=== PATIENT | female | born 1935 | race Caucasian/White ===

== ENCOUNTER 2016-11-01 17:55 | Inpatient (IN) | payer MEDICARE ==
--- NOTE | ~2016-11-01 | CN ---
Consultation Report [facility] [address] [place]. [address] NAME: AYANNA SANCHEZ : 34 STATUS : DIS IN PAT#: [id number] AGE: 81 ADM/REG DATE : 11/02/16 MR#: [id number] REPORT SERV DATE: 11/06/16 DICTATED BY: DATE: REPORT STATUS : Draft TRANSCRIBED BY: MODL DATE: 11/06/16 CONSULT DATE OF CONSULTATION: 11/06/2016 REASON FOR CONSULTATION: Diabetic management. REQUESTING PHYSICIAN: Dr. Salas Hernadez. IDENTIFYING DATA: PCP is Osmany Drummond, Cardiology is Dr. Salas Hernadez. HISTORY OF PRESENT ILLNESS: This is a pleasant 81-year-old white female, who had a CABG x3 on 11/04/2016, with MICHELE. This is postop day #2. The patient has a longstanding history of diabetes mellitus, type 2, hypertension, and episodic chest pain. We have been consulted to assist with her glucose management. The patient has been on Januvia, glyburide, and metformin at home. The patient states that she checks her blood sugars at night, but does not remember what the average is. The patient's current A1c is 7.3. The patient's history was obtained through careful interview with the patient, coupled with review in nurse CustEx and ChartCodeBabyx. PAST MEDICAL HISTORY: Significant for hypertension, dyslipidemia, diabetes mellitus type 2, GERD, osteoarthritis, hypothyroid, positive family history for early CAD. HOME MEDICATIONS: Amitriptyline 75 mg daily, gabapentin 100 mg daily, Osteo Bi-Flex twice daily, DiaBeta 5 mg daily, ibuprofen 200 mg daily as needed for pain, levothyroxine 75 mcg daily, Zestril 20 mg daily, Ativan 1 mg at bedtime as needed for sleep, Mobic 15 mg daily, Glucophage 1000 mg twice daily, omeprazole 40 mg daily, Zocor 40 mg daily, Januvia 100 mg daily, tramadol 50 mg twice daily as needed for pain, and PreserVision AREDS soft gel twice daily. ALLERGIES: THE PATIENT IS ALLERGIC TO PENICILLIN FOR WHICH SHE GETS A RASH. FAMILY HISTORY: Mother had an enlarged heart and at age 71. Brother with a heart attack in his 70s, his first heart attack was in his 60s. Father had an enlarged heart and at age 46 in a fire. SOCIAL HISTORY: The patient is with three children. 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 The patient lives with her sister. The patient denies alcohol, tobacco, or illicit drug use. The patient does not exercise routinely. PAST SURGICAL HISTORY: Right shoulder surgery, right hip surgery, left total knee arthroplasty, bilateral carpal tunnel surgery, removal of benign cyst from her breast, hysterectomy, and appendectomy. Consultation Report [address] [address] NAME: AYANNA SANCHEZ : 34 STATUS : DIS IN PAT#: [id number] AGE: 81 ADM/REG DATE : 11/02/16 MR#: [id number] REPORT SERV DATE: 11/06/16 DICTATED BY: DATE: REPORT STATUS : Draft TRANSCRIBED BY: MODSanaz DATE: 11/06/16 REVIEW OF SYSTEMS: A full 10-point review of systems was obtained. Pertinent positives mentioned in the HPI. Other systems are negative other than HPI. PHYSICAL EXAMINATION: VITAL SIGNS: Blood pressure 112/57, temperature is 97.8, respirations are 14, O2 saturation is 96% on 5 L high-flow nasal cannula, and heart rate is 80. GENERAL: Obese male, sitting in chair, in no acute distress. NEURO: Head is atraumatic and normocephalic. The patient is drowsy, but awakens to her name and then dozes back off again. At this time, the patient is a poor historian. NECK: Supple, trachea is midline. Neck veins are flat. No obvious thyromegaly or lymphadenopathy. HEENT: Sclerae are nonicteric, pupils are equal, round, reactive to light and accommodation, nares are patent. Mucous membranes are moist. Extraocular muscles within normal limits. Tongue is midline without deviation. CHEST: The patient has a midline sternotomy with a Prevena VAC, as well as chest tubes, and pacing wires. LUNGS: Clear to auscultation with shallow respiratory effort. Decreased in the bases. CARDIOVASCULAR: S1 and S2 with no obvious murmurs, rubs, or gallops. ABDOMEN: Soft and nontender with hypoactive bowel sounds. No palpable organomegaly. Last bowel movement was on 11/03/2016. EXTREMITIES: Feet are warm and dry with capillary refill less than 2 seconds. The patient has bilateral EVH sites with extensive ecchymosis around her knees and thighs. No significant edema, clubbing, or cyanosis. Pulses are present and equal bilaterally. SKIN: Skin is warm and dry with no unusual rashes or skin lesions. Normal color and turgor. PSYCH: The patient is drowsy, but awakens to voice. LABORATORY DATA: Sodium is 140, potassium is 4.8, chloride is 108, bicarb is 20.3, BUN is 26, creatinine 0.61, GFR is 98, glucose is 104, calcium is 8.4, magnesium 2.1. WBC 16.3, hemoglobin 9.0, hematocrit 26.9, and platelets 156. ASSESSMENT AND PLAN: 1. Diabetes mellitus type 2 with hyperglycemia. The patient has been on three oral medications for her diabetic management at home with a resulting A1c of 7.3. The patient has been on an insulin drip for the last two days in ICU and has received 104 units of insulin in the last 24 hours. At this time, the patient is not eating and it is unknown whether the patient has been eating at all. We will be stopping the insulin drip after administering Levemir 6 units and waiting one hour. The patient will be on sliding scale level 2 q.4 hours until the patient starts eating and then it will be changed to AC and at bedtime. We will be adjusting her insulin further tomorrow when hopefully the patient is alert enough to eat. Other diagnosis includes coronary artery disease, status post CABG x3, for which we are postop day #2. 2. Hypertension. 3. Hyperlipidemia. Consultation Report [address] [address] NAME: AYANNA SANCHEZ : 34 STATUS : DIS IN PAT#: [id number] AGE: 81 ADM/REG DATE : 11/02/16 MR#: [id number] REPORT SERV DATE: 11/06/16 DICTATED BY: DATE: REPORT STATUS : Draft TRANSCRIBED BY: MODL DATE: 11/06/16 4. Gastroesophageal reflux disease. 5. Osteoarthritis. 6. Hypothyroid. 7. Atypical chest pain. We would like to take the time to thank you for this consultation. We will continue to follow this patient with you until it is time for her to be discharged. Please let us know if we can be of any further assistance. SLC/MODL Maureen Isaacs NP / [id number] CC: Stephanie Alvarado M.D.
--- NOTE | ~2016-11-01 | CN ---
Consultation Report [facility] [address] [place]. [address] NAME: AYANNA SANCHEZ : 34 STATUS : DIS IN PAT#: [id number] AGE: 81 ADM/REG DATE : 11/02/16 MR#: [id number] REPORT SERV DATE: 11/03/16 DICTATED BY: NASEEM RODRIGUES DATE: 11/03/16 REPORT STATUS : Draft TRANSCRIBED BY: MODL DATE: 11/03/16 CONSULT NOTE DATE OF CONSULTATION: 11/03/2016 [facility] REASON FOR CONSULTATION: Multivessel coronary artery disease. HISTORY OF PRESENT ILLNESS: This is a pleasant 81-year-old female, who has a longstanding history of high blood pressure, hyperlipidemia, and type 2 diabetes mellitus. She presented to the emergency room on 11/01/2016 with severe onset of chest pain /10 with negative troponins and elevated blood pressure. She was being monitored in our chest pain observation unit overnight and developed a second and third degree AV block. She was alternating between second and third degree AV Wenckebach and 2:1 AV block. An overnight telemetry strip showed third-degree AV block with a junctional escape rhythm. Electrophysiology was consulted and the patient was evaluated by Dr. Briscoe who suspected that the patient needed to undergo pacemaker placement. She was actually taken for cardiac catheterization yesterday and found to have three-vessel coronary artery disease including a 50% stenosis to her left main, 75% proximal LAD, 75% first diagonal, 75% proximal left circ, and a 60% proximal RCA. Her ejection fraction is around 60%. There is a torturous innominate artery and aortic arch without mention of any valvular abnormality. CT surgery was consulted for evaluation of CAB versus medical therapy. The patient is currently recovering after her cardiac catheterization. She is lethargic and groggy from her sedation but is minimally arousable. She is not able to have a conversation regarding surgery at this time due to the fact that I am not sure if she can understand all the information. Her family is here with her at the bedside who said that the patient did not want surgery yesterday but they would still like to discuss what options she would have. Currently, the patient is free from any complaints. PAST MEDICAL HISTORY: Hypertension, hyperlipidemia, type 2 diabetes mellitus, gastroesophageal reflux disease, osteoarthritis, and hypothyroidism. PAST SURGICAL HISTORY: Appendectomy, hysterectomy, total left knee, right shoulder surgery, total right hip, bilateral carpal tunnel surgery, and she has a benign cyst removed from her left breast. SOCIAL HISTORY: She is , with 3 children. She is retired. She lives with her sister and is fairly independent in taking care of herself. She denies any history of alcohol abuse, use of illicit drugs, or tobacco. FAMILY HISTORY: She has a mother and father with cardiomyopathy and a brother who from an [place] in his 70s. Consultation Report [facility] [address]. [address] NAME: AYANNA SANCHEZ : 34 STATUS : DIS IN PAT#: [id number] AGE: 81 ADM/REG DATE : 11/02/16 MR#: [id number] REPORT SERV DATE: 11/03/16 DICTATED BY: NASEEM RODRIGUES DATE: 11/03/16 REPORT STATUS : Draft TRANSCRIBED BY: SHAHEEN DATE: 11/03/16 ALLERGIES: SHE IS ALLERGIC TO PENICILLIN IT CAUSES HER A RASH. HOME MEDICATIONS: 1. Neurontin 100 mg p.o. at bedtime. 2. Glucosamine D3 Boswellia tablet 1 tab p.o. daily. 3. Glyburide 5 mg p.o. daily. 4. Advil 200 mg p.o. as needed. 5. Levothyroxine 75 mcg p.o. daily. 6. Lisinopril 20 mg p.o. daily. 7. Ativan 1 mg p.o. at bedtime as needed. 8. Mobic 15 mg p.o. daily. 9. Glucophage 1000 mg p.o. twice a day. 10.Prilosec 40 mg p.o. daily. 11.Simvastatin 40 mg p.o. at bedtime. 12.Januvia 100 mg p.o. daily. 13.Tramadol 50 mg p.o. twice a day. 14.Vitamin C, zinc, copper, lutein tab 1 cap p.o. twice a day. REVIEW OF SYSTEMS: A 12-point review of systems was obtained and is negative other than HPI. PHYSICAL EXAMINATION: VITAL SIGNS: From today, temperature 99.2, heart rate 61, blood pressure 140/65, respiratory rate 16, and O2 saturation 96% on room air. GENERAL: Pleasant obese female, groggy from anesthesia but arousable. No acute distress. NEUROLOGIC: Alert and oriented x2. Pupils exhibit PERRLA. HEENT: Head normocephalic and atraumatic. Neck is supple. Sclerae clear. LUNGS: Clear to auscultation bilaterally with normal effort. CARDIAC: S1, S2 with no murmurs, rubs, or gallops. ABDOMEN: Soft, obese, and nontender with active bowel sounds. EXTREMITIES: Free of cyanosis, clubbing, or edema. LAB DATA: White blood cell count 9.0, hemoglobin 12.0, hematocrit 36.2, and platelets 221. Sodium 141, potassium 4.2, chloride 107, bicarb 24, BUN 15, creatinine 0.8, and glucose 207. ASSESSMENT AND PLAN: This is an 81-year-old female, who has a longstanding history of hypertension, type 2 diabetes mellitus, and hyperlipidemia, who presented to the emergency room on 11/01/2016 with unstable angina. She had negative troponins but developed a 2nd and 3rd degree AV block while being observed in the chest pain observation unit. She was evaluated by shift production associate who recommended pacemaker placement but she was also diagnosed with 3-vessel coronary artery disease as described above per cardiac catheterization yesterday. We were consulted for evaluation of CAB prior to proceeding with a pacemaker placement. Initially the patient told her family that she did not want bypass surgery but now she is too groggy to make that decision. Our first option is to do the CAB, Consultation Report [address] [place]. [address] NAME: AYANNA SANCHEZ : 34 STATUS : DIS IN PAT#: [id number] AGE: 81 ADM/REG DATE : 11/02/16 MR#: [id number] REPORT SERV DATE: 11/03/16 DICTATED BY: NASEEM RODRIGUES DATE: 11/03/16 REPORT STATUS : Draft TRANSCRIBED BY: SHAHEEN DATE: 11/03/16 then proceed with pacemaker placement later on down the line. The other option is to do the pacemaker placement now and allow Cardiology to maximize medical therapy with no plans for CAB. Calculated STS risk scores which included an STS risk stratification overall mortality of 2.2% and morbidity mortality of 14%. I discussed these findings with the family. We will discuss them later with the patient. We will return later after Dr. Noland has had a moment to review her cardiac catheterization. We will talk to the patient this afternoon when she is a little bit more awake so that she can make an informed decision regarding surgery. We would like to thank you for the consultation. We look forward to help in the care for Mrs. Ayanna Sanchez. DAWSON/SHAHEEN Naseem Rodrigues NP / [id number] CC: Stephanie Alvarado M.D.
--- NOTE | ~2016-11-01 | OP ---
Record Of Operation [facility] [address] [place]. [address] NAME: AYANNA SANCHEZ : 34 STATUS : DIS IN PAT#: [id number] AGE: 81 ADM/REG DATE : 11/02/16 MR#: [id number] REPORT SERV DATE: 12/08/16 DICTATED BY: BHANU JOHNS DATE: 12/08/16 REPORT STATUS : Draft TRANSCRIBED BY: MODL DATE: 12/08/16 DATE OF PROCEDURE: 11/04/2016 WASHER HAND: Dwayne Calix. ANESTHESIOLOGIST: Dr. Rafal Bradley. PREOPERATIVE DIAGNOSES: 1. Non-ST segment elevation myocardial infarction. 2. Unstable angina. 3. Left main coronary artery disease. 4. Three-vessel coronary artery disease. 5. Diabetes mellitus. 6. Hypertension. 7. Hyperlipidemia. 8. Morbid obesity. 9. Moderate MR. 10.Third-degree heart block. POSTOPERATIVE DIAGNOSES: 1. Non-ST segment elevation myocardial infarction. 2. Unstable angina. 3. Left main coronary artery disease. 4. Three-vessel coronary artery disease. 5. Diabetes mellitus. 6. Hypertension. 7. Hyperlipidemia. 8. Morbid obesity. 9. Moderate MR. 10.Third-degree heart block. OPERATION/PROCEDURE PERFORMED: 1. Median sternotomy. 2. Extracorporeal circulation. 3. Urgent coronary artery bypass grafting x3, left internal mammary artery, left anterior descending, reverse greater saphenous vein graft to obtuse marginal #1, reverse greater saphenous vein graft to distal RCA. 4. MICHELE. 5. Bilateral lower extremity EVH. 6. Prevena dressing placement. COMPLICATIONS: None. TUBES AND DRAINS: 24-Hebrew Collins to the left pleural space, 32-Hebrew mediastinal chest tube, atrial and ventricular wires were placed. Record Of Operation [facility] [address] [place]. [address] NAME: AYANNA SANCHEZ : 34 STATUS : DIS IN PAT#: [id number] AGE: 81 ADM/REG DATE : 11/02/16 MR#: [id number] REPORT SERV DATE: 12/08/16 DICTATED BY: BHANU JOHNS DATE: 12/08/16 REPORT STATUS : Draft TRANSCRIBED BY: MODL DATE: 12/08/16 POSTOPERATIVE CONDITION: Stable to CVICU. Cross-clamp time was 56 minutes. Total cardiopulmonary bypass time was 75 minutes. INTRAOPERATIVE FINDINGS: Vein from the left was unusable. Vein from the right was appropriate for conduit use. JAVIER was approximately 2 mm. On transesophageal echo, there was moderate MR preop. There was preserved EF post bypass and post CABG, there was mild-to- moderate MR. DETAILS OF CARDIOPULMONARY BYPASS GRAFTIN. Graft #1, left internal mammary artery, left anterior descending. 2. Reverse greater saphenous vein graft to obtuse marginal #1. 3. Reverse greater saphenous vein graft to distal RCA. Her excellent targets were excellent Doppler signals both pre and post protamine. INDICATIONS FOR PROCEDURE: Ms. Ayanna Sanchez is an 81-year-old female, admitted with an NSTEMI and third-degree heart block. Was found to have significant left main disease with three-vessel disease. Risks, benefits, and alternatives were discussed with the patient including, but not limited to bleeding, infection, stroke, , heart attack, and need for future operations. All questions were answered. STS risks were calculated and discussed with the patient. Risk of less mortality, risk of less than 5%. Overall morbidity and mortality less than 20% were discussed with the patient. All questions were answered. DETAILS OF PROCEDURE: The patient was brought to the operating room, placed supine on the operating room table. After satisfactory induction of general endotracheal anesthesia, she was prepped and draped in the usual sterile fashion. Working simultaneously, endoscopic vein harvest was performed from the right and left leg. The left was unusable. The right was appropriate. Median sternotomy was performed. Skin and subcutaneous tissues were divided. Clavipectoral fascia was divided. The sternum was divided in the midline. Hemostasis was obtained. Sternal retractor was placed. Thymic tissue was divided in the midline. Pericardium was opened in the midline along diaphragm, diaphragmatic surface. Rultract retractor was then placed and the internal mammary artery was harvested in a pedicle fashion from its takeoff from the subclavian vein to the bifurcation of the diaphragm. Systemic heparinization was achieved. After 3 minutes, the pedicle was clipped and divided at the bifurcation of the diaphragm. Rultract retractor was removed. Sternal retractor was placed. Pericardial well was created. Ascending aorta was cannulated at the base of the innominate artery. Dual stage venous cannula was placed through the pursestring in the right atrial appendage. Antegrade root vent cardioplegia tack was placed. The conduit was prepared for bypass. Internal mammary artery was brought down through a wide V in the pericardium. After documentation of an adequate ACT, the cardiopulmonary bypass was initiated. The targets were inspected. Targets were as mentioned in the findings. The cross-clamp was brought up. Heart was arrested with cold antegrade cardioplegia switching cold antegrade cardioplegia and intermittent aliquots for every 15 to 20 minutes throughout the remainder of the cross clamp. Distal venous anastomoses were then performed. The vein was brought up, reversed, spatulated, and a running continuous anastomosis was performed to one vein to the distal RCA and one vein to the obtuse marginal #1. The heart was filled. The veins were cut to length, spatulated. Proximal aortotomies were performed and enlarged with a 4.5 mm punch. The proximal anastomoses were then performed using 6-0 Prolene. Vein Record Of Operation [facility] [address] [facility] [address] [place]. [address] NAME: AYANNA SANCHEZ : 34 STATUS : DIS IN PAT#: [id number] AGE: 81 ADM/REG DATE : 11/02/16 MR#: [id number] REPORT SERV DATE: 12/08/16 DICTATED BY: BHANU JOHNS DATE: 12/08/16 REPORT STATUS : Draft TRANSCRIBED BY: SHAHEEN DATE: 12/08/16 markers were placed. The internal mammary artery was then brought down through a wide V in the pericardium and anastomosed to the anterior surface of the soft spot on the LAD. This was done using 8-0 Surgipro. All distal anastomoses were done using 8-0 Surgipro. After completion of the anastomosis, the bulldog was removed from the pedicle. There was excellent Doppler flow in the graft and in the artery, both pre and post the anastomosis. The vein grafts were de-aired. The cross-clamp was removed. Atrial and ventricular pacing wires were placed, and the patient was able to be weaned from cardiopulmonary bypass. Protamine was administered. The patient was decannulated. All cannulation sites were oversewn with 4-0 Prolene. The pericardium was loosely reapproximated over the anterior surface of the right ventricle and the aorta. #32-Hebrew chest tube was placed beneath the sternum. The sternum was reapproximated using stainless steel sternal wires, some of these were double wires. The clavipectoral fascia was then reapproximated using running #1 StrataFix. Subcutaneous tissues were reapproximated using running #1 StrataFix. The skin was closed using 2-0 Quill. A Prevena dressing was placed. The patient was transferred to the CVICU in critical-stable condition. WMC/MODL Bhanu Johns MD / [id number] CC: MD Osmany Simon M.D.
--- NOTE | ~2016-11-01 | HP ---
History And Physical [id number] [place]. [address] NAME: AYANNA SANCHEZ : 34 STATUS : DIS IN PAT#: [id number] AGE: 81 ADM/REG DATE : 11/02/16 MR#: [id number] REPORT SERV DATE: 11/02/16 DICTATED BY: RENEA VALENTINE DATE: 11/02/16 REPORT STATUS : Draft TRANSCRIBED BY: SHAHEEN DATE: 11/02/16 DATE OF ADMISSION: 11/01/2016 CHIEF COMPLAINT: Chest pain and hypertension. HISTORY OF PRESENT ILLNESS: A pleasant 81-year-old white female with no known history of CAD, presents to our facility complaining of episodic chest pain and blood pressure poorly managed. She states for the last three days, she has had episodic chest pain, generally on waking, described as a pressure. She rates the chest pain a 10/10 at its most intense. At the time of interview in the CPOU, she rates it a 5/10. She reports some associated shortness of breath, nausea, diaphoresis, dizziness, or belching. She reports chest pain at night when her blood pressure was elevated. She has tried aspirin without relief. There was no exertional component described. The patient denies any personal history of myocardial infarction, stroke, or PE. She does report a superficial lower extremity thrombus approximately 20 years ago, treated for six weeks with anticoagulants. The patient denies any recent fever or chills. Describes occasional palpitations. Consumes three eight-ounce cups of coffee per day. No syncopal episodes. Denies PND or orthopnea. PAST MEDICAL HISTORY: 1. Hypertension. 2. Dyslipidemia. 3. AODM. 4. GERD. 5. Osteoarthritis. 6. Hypothyroid, on replacement. 7. Positive family history for early CAD. PAST SURGICAL HISTORY: 1. Appendectomy. 2. Hysterectomy. 3. A cyst from breast (benign). 4. Bilateral carpal tunnel. 5. Left total knee. 6. Right total hip. 7. Right shoulder surgery. SOCIAL HISTORY: She is with three children. Previously employed in a [employer], now retired. She does not have an exercise routine. She resides with her sister. She denies tobacco, alcohol, or illicits. FAMILY HISTORY: Mother with an enlarged heart, at 71. Father with an enlarged heart at 46 in a fire. Brother with a heart attack in his 60s, in his 70s. REVIEW OF SYSTEMS: A fourteen-point review of systems performed, significant for HPI including home blood History And Physical [address] [place]. [address] NAME: AYANNA SANCHEZ : 34 STATUS : DIS IN PAT#: [id number] AGE: 81 ADM/REG DATE : 11/02/16 MR#: [id number] REPORT SERV DATE: 11/02/16 DICTATED BY: RENEA VALENTINE DATE: 11/02/16 REPORT STATUS : Draft TRANSCRIBED BY: MODL DATE: 11/02/16 sugars of 101 to 130. Home blood pressures of 115 systolic. Reports added salt to her diet and takes CLAUDINE inhibitor inconsistently at times. Otherwise, complete review of systems obtained and negative. ALLERGIES: PENICILLIN CAUSES A RASH. HOME MEDICINES: Gabapentin 100 mg nightly, Osteo Bi-Flex daily, glyburide 5 mg daily, Advil p.r.n., levothyroxine 75 mcg daily, lisinopril 20 mg daily, Ativan 1 mg nightly, Mobic 15 mg daily, metformin 1000 mg twice daily, Prilosec 40 mg daily, Zocor 40 mg nightly, Januvia 100 mg daily, tramadol 50 mg twice daily p.r.n., and PreserVision twice daily. PHYSICAL EXAMINATION: VITAL SIGNS: Blood pressure 206/79, pulse 51, respirations 16, temperature 97.9, O2 saturation 96% on room air. Height 5 feet 3 inches. Weight 208 pounds. BMI 37. GENERAL: Cooperative, in no apparent distress. HEENT: Pupils 2 mm, sclera nonicteric. Nares patent. Moist mucous membranes. No xanthelasma. NECK: Trachea midline, no thyromegaly. No JVD. No bruits. LYMPH: No cervical lymphadenopathy. No supraclavicular lymphadenopathy. RESPIRATORY: Unlabored respirations. Breath sounds clear bilaterally to posterior auscultation. No wheezes or rhonchi. CARDIOVASCULAR: Regular rate. No murmur, rub or gallop appreciated. EXTREMITIES: Without edema. Pulses 2+ bilaterally. ABDOMEN: Obese, normal bowel sounds auscultated throughout. No organomegaly. SKIN: Warm, dry extremities. No pallor, or cyanosis. PSYCHIATRIC: Appropriate affect. Alert, oriented x3. LABORATORY DATA: Troponin less than 0.02 x3, TSH 2.80, free T4 1.15. Potassium 3.9, BUN 15, creatinine 0.72, glucose 104, magnesium 1.6. WBC 10.3, hemoglobin 13.3, hematocrit 39.8, and platelet count 255,000. EKG, bradycardia with Mobitz 1 and Mobitz 2 noted. ASSESSMENT AND PLAN: 1. Chest pain with atypical features and the presence of elevated blood pressure and symptomatic bradycardia. The patient will be held n.p.o. for cardiac catheterization today. If no coronary artery disease identified, we will pursue Electrophysiology consult for symptomatic bradycardia. 2. Symptomatic bradycardia. Check a thyroid stimulating hormone, avoid blocking agents, Electrophysiology consult off following catheterization. Await findings. 3. Hypertension. Monitor blood pressure. Continue home medications. 4. Dyslipidemia. Continue statin. 5. Adult-onset diabetes mellitus. Hold metformin, level 1 sliding scale correction. LENIN/SHAHEEN History And Physical [address] [address] NAME: AYANNA SANCHEZ : 34 STATUS : DIS IN PAT#: [id number] AGE: 81 ADM/REG DATE : 11/02/16 MR#: [id number] REPORT SERV DATE: 11/02/16 DICTATED BY: RENEA VALENTINE DATE: 11/02/16 REPORT STATUS : Draft TRANSCRIBED BY: MODSanaz DATE: 11/02/16 Renea Valentine MSN, BUSINESS UNIT CONTROLLER-BC / [id number] CC: Renea Valentine, MSN, BUSINESS UNIT CONTROLLER-BC Osmany Drummond M.D.
--- NOTE | ~2016-11-01 | DS ---
Discharge Summary [facility] [address] [place]. [address] NAME: AYANNA SANCHEZ : 34 STATUS : DIS IN PAT#: [id number] AGE: 81 ADM/REG DATE : 11/02/16 MR#: [id number] REPORT SERV DATE: 11/21/16 DICTATED BY: SALAS CAMPO DATE: 11/18/16 REPORT STATUS : Draft TRANSCRIBED BY: SHAHEEN DATE: 11/18/16 Data Collection from hospitalization DISCHARGE DIAGNOSES: 1. Coronary artery disease, status post coronary artery bypass grafting. 2. Second-degree AV block. 3. Hypertension. 4. Hyperlipidemia. 5. Type 2 diabetes mellitus. 6. Gastroesophageal reflux disease. 7. Osteoarthritis. 8. Hypothyroidism. CONSULTATIONS: 1. Luiz Briscoe M.D. 2. Yovani Glass NP. 3. Maureen Isaacs NP. PROCEDURES: 1. Cardiac catheterization, 11/02/2016. 2. Dual-chamber pacemaker placement, 11/09/2016. 3. Carotid blood flow study, 11/03/2016. 4. Vein mapping of the bilateral lower extremities. 5. Coronary artery bypass x3 using left mammary artery and greater saphenous vein harvested endoscopically from the right and left side and transesophageal echocardiogram dated 11/04/2016. DISCHARGE MEDICATIONS: Elavil 75 mg at bedtime, aspirin 81 mg daily, Lipitor 40 mg at bedtime, Coreg 6.25 mg twice a day, Neurontin 100 mg at bedtime, DiaBeta 5 mg twice a day, levothyroxine 75 mcg daily, Prinivil 10 mg twice a day, Prilosec 40 mg daily, Januvia 100 mg daily, Glucophage 1000 mg twice a day, Osteo Bi-Flex one tablet twice a day, PreserVision one capsule twice a day, Ultram 50 mg twice a day as needed, Ativan 1 mg at bedtime as needed, and Zocor 40 mg at bedtime. CONDITION ON DISCHARGE: Stable. DISPOSITION: The patient was discharged to [email or web address]] on an 1800- calorie cardiac/diabetic diet with activities as instructed. HOSPITAL COURSE: This is an 81-year-old female, who has no known history of coronary artery disease, who presented to our facility complaining of episodic chest pain and blood pressure poorly managed. She said that for the last three days prior to admission she had episodic chest pain generally on awakening which she described as pressure. She said the pain was a 10/10 at its most intense. At the time of interview in the CPOU, she rated it a 5/10. She did report some associated shortness of breath, nausea, diaphoresis, dizziness, and belching. She reported chest pain at night when her blood pressure was elevated. She had tried aspirin without relief. There was no exertional component described. She denies any personal history of myocardial infarction, stroke, or pulmonary embolus. She does report a Discharge Summary [id number] [facility] [place]. [address] NAME: AYANNA SANCHEZ : 34 STATUS : DIS IN PAT#: [id number] AGE: 81 ADM/REG DATE : 11/02/16 MR#: [id number] REPORT SERV DATE: 11/21/16 DICTATED BY: SALAS CAMPO DATE: 11/18/16 REPORT STATUS : Draft TRANSCRIBED BY: SHAHEEN DATE: 11/18/16 superficial lower extremity thrombus approximately 20 years ago, she had been treated for six weeks with anticoagulants. She was admitted to the hospital at this time for further evaluation and treatment. Upon admission, EKG revealed bradycardia with Mobitz I and Mobitz II. White count was 10.3. Troponin was less than 0.02 x 3. It was felt that she would need to undergo a cardiac catheterization, she was held n.p.o. There is no coronary artery disease that was identified. We would pursue electrophysiology consult for symptomatic bradycardia. Thyroid stimulating hormone was going to be checked. We would avoid blocking agents. Home blood pressure medications would be continued. Metformin was held. Level 1 sliding scale insulin was started. She was taken to the cardiac ammunition assembly i laborer where she underwent the above-mentioned procedure by Dr. Francisco Javier Guadalupe, she tolerated this well, and there were no complications. She was seen in consultation by Dr. Luiz Briscoe regarding second and third degree AV block. His impression included high-grade AV block with a combination of second and third degree AV block. The patient has multi-vessel coronary artery disease with normal ejection fraction. The patient has fatigue and shortness of breath with exertion in the context of multivessel coronary disease and normal LV systolic function. It was felt that the patient would need to undergo implantation of a dual-chamber pacemaker, she agrees to proceed. The following day, a carotid blood flow study was performed as well as vein mapping of the bilateral lower extremities. The patient was now chest pain-free. The patient had been changed to Lipitor. Medical therapy continued. Statin was changed to atorvastatin. She was seen by Yovani Glass regarding multivessel coronary artery disease. Cardiac catheterization had revealed three-vessel coronary artery disease including 50% stenosis to the left main, 75% proximal LAD, 75% first diagonal, 75% proximal left circumflex, and 60% proximal RCA. Her ejection fraction was around 60%. There was a tortuous innominate artery and aortic arch without mention of any valvular abnormality. We have been asked to see the patient for evaluation of coronary artery bypass versus medical therapy. The first option was to perform coronary artery bypass and then proceed with pacemaker placement later or down the line. The other option was to perform pacemaker placement now and allow Cardiology to maximize medical therapy with no plans for coronary artery bypass. It was elected to proceed with coronary artery bypass On 11/04/2016, the patient was taken to the operating room where she underwent the above- mentioned procedure by Dr. Connell, she tolerated this well, and there were no complications. On postop day #1, she had been extubated, she was doing well. Nitroglycerin, calcium channel pippa, and CLAUDINE inhibitor were being provided. IV hydralazine would be given as needed. On 11/06/2016, she was up sitting in a chair. She was seen in consultation by Maureen Isaacs regarding diabetic management. The patient had been on Januvia, glyburide, and metformin at home. The patient says that she checks her blood sugar at night but does not remember what the average is. Her current hemoglobin A1c was 7.3. White count was 16.3. The patient had been on an insulin drip for the past two days in the ICU. The insulin drip was going to be stopped after administering Levemir. Sliding scale insulin level 2 would be started as well. Insulin would be further adjusted the following day when she was alert enough to eat. Her rhythm was in Mobitz II/Mobitz I. Her pacer was decreased to 60, CLAUDINE inhibitor was increased. Blood pressure was under acceptable control. Nitroglycerin was Discharge Summary [address] [place]. [address] NAME: AYANNA SANCHEZ : 34 STATUS : DIS IN PAT#: [id number] AGE: 81 ADM/REG DATE : 11/02/16 MR#: [id number] REPORT SERV DATE: 11/21/16 DICTATED BY: SALAS CAMPO DATE: 11/18/16 REPORT STATUS : Draft TRANSCRIBED BY: MODL DATE: 11/18/16 being weaned. AV block - second degree had improved. We would avoid calcium channel pippa or beta-pippa at this time. At the present time, no plans were being made to place a pacemaker. If there were changes in her rhythm situation, Electrophysiology may be consulted to arrange pacer placement. Medical therapy continued. Omeprazole, gabapentin, and levothyroxine were continued as well as aspirin and lisinopril. DiaBeta and sliding scale insulin were continued as well as metformin and Levemir. Her pain was controlled. We encouraged her to increase her oral intake. Her current Levemir dose and sliding scale insulin were continued. On 11/09/2016, she complained of being sore. She was eating okay. She had no chest pain or shortness of breath. She still had intermittent bradycardia -Mobitz II. She was being held n.p.o. It was felt that she may need to have a pacemaker placed. AV block persisted. The patient wanted to proceed. She was taken to the electrophysiology laboratory where she underwent the above-mentioned procedure by Dr. Luiz Briscoe. She tolerated this well, and there were no complications. The following day, she felt good. She had no new complaints. Blood sugars and blood pressure were under control. She had no new dysuria. She said she was sleeping well. She seemed to be in good spirits. Discharge planning continued. We encouraged her to ambulate. On 11/13/2016, she had no new complaints. She was afebrile, her vital signs were stable. Discharge instructions were given. Due to her improved and stable condition, she was discharged to [facility] with the above-stated instructions. Information collected by: Christina Amezcua I submit the above information as my discharge summary. DAYLIN/SHAHEEN Salas Campo M.D. / [id number] CC: Stephanie Alvarado M.D. Gregory Keith Bruce, M.D. Nathan S. Woody, [facility]
--- NOTE | ~2016-11-01 | CN ---
Consultation Report [facility] [address] [place]. [address] NAME: AYANNA SANCHEZ : 34 STATUS : DIS IN PAT#: [id number] AGE: 81 ADM/REG DATE : 11/02/16 MR#: [id number] REPORT SERV DATE: 11/03/16 DICTATED BY: LUIZ BRISCOE DATE: 11/02/16 REPORT STATUS : Draft TRANSCRIBED BY: MODL DATE: 11/02/16 ELECTROPHYSIOLOGY CONSULTATION DATE OF CONSULTATION: INDICATIONS: Second and third-degree AV block. HISTORY OF PRESENT ILLNESS: Ayanna Sanchez is an 81-year-old female who presented to the hospital on the . Three days prior to admission, she has had intermittent episodes of significant chest pain and she rates this as severe between 5/10 and 10/10. This is associated with elevation in her blood pressure. She was seen in the ER, troponin was found to be negative, admitted to the Chest Pain Unit. Overnight, she went on to develop second and third degree AV block. She is alternating between 2-3 AV Wenckebach and 2-1 AV block, and overnight telemetry strips with third-degree AV block and a junctional escaped rhythm. She is somewhat anxious and has no focal complaints at the present time. She has significant exertional fatigue, effort intolerance, and shortness of breath with exertion, but has no present symptoms while sitting at rest. Primary provider is Dr. Osmany Drummond. PAST MEDICAL HISTORY: Hypertension, hyperlipidemia, type 2 diabetes, reflux, osteoarthritis, and hypothyroidism. FAMILY HISTORY: Noted for premature CAD. REVIEW OF SYSTEMS: As per the HPI. Otherwise, all other review of systems negative. ALLERGIES: PENICILLIN CAUSES A RASH. MEDICATIONS: Listed in [facility] Medicine Form and reviewed. PHYSICAL EXAMINATION: VITAL SIGNS: Blood pressure currently 230/110, heart rate of 40, respiratory rate is 18. GENERAL: Appears stated age, no distress. EYES: Sclerae anicteric. Arcus senilis. MOUTH: Oral mucosa moist, lips acyanotic. NECK: Jugular venous pressure normal, no carotid bruits. LUNGS: Clear to auscultation bilaterally, normal inspiratory effort. CARDIAC: Irregular rhythm with bradycardia. ABDOMEN: Soft, nondistended, nontender. EXTREMITIES: No edema. SKIN: Warm and dry. NEURO/PSYCH: Alert and oriented, nonfocal, mood appropriate. IMAGING: Coronary arteriogram demonstrates multivessel coronary disease and normal LV Consultation Report [facility] [address] [place]. [address] NAME: AYANNA SANCHEZ : 34 STATUS : DIS IN PAT#: [id number] AGE: 81 ADM/REG DATE : 11/02/16 MR#: [id number] REPORT SERV DATE: 11/03/16 DICTATED BY: LUIZ BRISCOE DATE: 11/02/16 REPORT STATUS : Draft TRANSCRIBED BY: MODL DATE: 11/02/16 systolic function. ECG demonstrates Mobitz 1 AV block and 2-1 AV block. DATA: Sodium 143, potassium 3.9, creatinine 0.7, hemoglobin 13. Troponin negative x3. IMPRESSIONS: 1. High-grade AV block with combination of second and third degree AV block. 2. Multivessel CAD with normal EF. 3. Diabetes. 4. Hypertension. RECOMMENDATIONS: The patient has symptomatic high-grade AV block combination of second and third-degree AV block with fatigue and shortness of breath with exertion in the context of multivessel CAD and normal LV systolic function. We will plan to proceed with implantation of a dual chamber pacemaker. I have discussed this with the patient and multiple family members, addressed the rationale, logistics, and risks. Risks include, but not limited to bleeding, infection, vascular complications, myocardial infarction, stroke, failure to place lead, lead dislodgement, pneumothorax. Advised them may be one of my partners should do the procedure tomorrow or procedure may be performed on Monday. They voiced full understanding and agreement. Otherwise, we will control patient's blood pressure by increasing lisinopril adding Norvasc and as needed hydralazine both oral and IV. If she develops significant bradycardia overnight, we will begin aspirin on drip. JULIA/SHAHEEN Luiz Briscoe M.D. / [id number] CC: Renea Valentine, MSN, TRIMMER AND REINFORCER-BC Osmany Drummond M.D.
[2016-11-01 15:45] LABS: BASOPHILS 0.2 %; BASOPHILS ABSOLUTE 0.02 10/3/uL (0.0-0.16); ER CBC TAT 0 Hrs 03 Mins; HEMATOCRIT 39.8 % (36.0-48.0); HEMOGLOBIN 13.3 g/dL (12.0-16.0); IMMATURE GRANULOCYTES 0.2 %; IMMATURE GRANULOCYTES ABSOLUTE 0.02 10/3/uL (0.0-0.11); LYMPHOCYTES 21.5 %; LYMPHOCYTES ABSOLUTE 2.21 10/3/uL (0.67-4.30); MEAN CORPUS HGB CONC 33.4 g/dL (32.0-36.0); MEAN CORPUSCULAR HEMOGLOB 30.4 pg (26.0-34.0); MEAN CORPUSCULAR VOLUME 91.1 fL (80-100); MEAN PLATELET VOLUME 11.3 fL (9.2-13.0); MONOCYTES 6.5 %; MONOCYTES ABSOLUTE 0.67 10/3/uL (0.21-1.20); NEUTROPHILS 70.6 %; NEUTROPHILS ABSOLUTE 7.24 10/3/uL (2.02-8.40); PLATELET COUNT 255 10/3/uL (150-400); RBC DISTRIBUTION WIDTH 13.3 % (12.0-16.0); RED CELL COUNT 4.37 10/6/uL (4.0-5.6); WHITE BLOOD CELLS 10.3 10/3/uL (4.5-10.5)
[2016-11-01 15:46] LABS: MANUAL DIFF NO %
[2016-11-01 15:58] LABS: INTERNATIONAL NORMAL RATI 1.1 UNITS (-); PARTIAL THROMBO TIME 27.4 SEC (22.5-37.2); PROTIME (NOT ORD) 13.9 SEC (12.0-14.5)
[2016-11-01 16:03] LABS: BUN (BLOOD UREA NITROGEN) 15 MG/DL (6-23); CALCIUM, SERUM 8.9 MG/DL (8.5-10.4); CHEST PAIN PROFILE TAT 0 Hrs 21 Mins; CHLORIDE, SERUM 104 MMOL/L (96-112); CO2 (CARBON DIOXIDE) 30 MMOL/L (24-34); CREATININE 0.72 MG/DL (0.55-1.02); GFR AFRICAN AMERICAN 90 ML/MIN (>=60); GFR NON AFRICAN AMERICAN 78 ML/MIN (>=60); GLUCOSE, SERUM 104 MG/DL (60-99); POTASSIUM, SERUM 3.9 MMOL/L (3.5-5.3); SODIUM, SERUM 143 MMOL/L (135-148); TROPONIN I <0.02 NG/ML (<0.05)
[~2016-11-01 17:55] MED LIST: AMIT75 PO; CO Q-10100 MG PO; CRESTOR PO; DIABETA5 PO; ENDOCET1 TA2 PO; GLUCPH PO; LEVOTHYROXIN50 MCG PO; MOBIC7.5 PO; NORV5 PO; ULTRAM50 PO
[2016-11-01] MEDS ORDERED: OSTEO BI-FLEX1 EACH PO (18:49)
[2016-11-01] MEDS ORDERED: JANUVIA100 MG PO (18:50)
[2016-11-01] MEDS ORDERED: PRESERVISION A1 EAC1 PO (18:50)
[2016-11-01] MEDS ORDERED: GLUCOPHAGE1000 MG PO (18:50)
[2016-11-01] MEDS ORDERED: PRILOSEC40 MG PO (18:50)
[2016-11-01] MEDS ORDERED: MOBIC15 MG PO (18:50)
[2016-11-01] MEDS ORDERED: ZESTRIL20 MG PO (18:51)
[2016-11-01] MEDS ORDERED: ULTRAM50 PO (18:51)
[2016-11-01] MEDS ORDERED: ATV1 PO (18:52)
[2016-11-01] MEDS ORDERED: ZOCOR40 PO (18:57)
[2016-11-01] MEDS ORDERED: NEUR100 PO (18:57)
[2016-11-01] MEDS ORDERED: DIABETA5 PO (18:58)
[2016-11-01] MEDS ORDERED: AMIT75 PO (18:58)
[2016-11-01] MEDS ORDERED: ADVIL PO (18:58)
[2016-11-01] MEDS ORDERED: LEVOTHYROXIN75 MCG PO (18:58)
[2016-11-02 03:41] LABS: TROPONIN I <0.02 NG/ML (<0.05)
[2016-11-02 11:53] LABS: FREE T4 1.15 NG/DL (0.76-1.46)
[2016-11-02 13:20] LABS: FREE T4 1.1 NG/DL (0.76-1.46); ULTRASENSITIVE TSH 3.08 MCIU/ML (0.358-3.740)
[2016-11-02 14:47] LABS: BASOPHILS 0.1 %; BASOPHILS ABSOLUTE 0.01 10/3/uL (0.0-0.16); EOSINOPHILS 0.5 %; EOSINOPHILS ABSOLUTE 0.04 10/3/uL (0.0-0.53); HEMOGLOBIN 12.1 g/dL (12.0-16.0); IMMATURE GRANULOCYTES 0.1 %; IMMATURE GRANULOCYTES ABSOLUTE 0.01 10/3/uL (0.0-0.11); LYMPHOCYTES 23.6 %; LYMPHOCYTES ABSOLUTE 1.74 10/3/uL (0.67-4.30); MEAN CORPUS HGB CONC 34.1 g/dL (32.0-36.0); MEAN CORPUSCULAR HEMOGLOB 30.9 pg (26.0-34.0); MEAN CORPUSCULAR VOLUME 90.6 fL (80-100); MEAN PLATELET VOLUME 10.8 fL (9.2-13.0); MONOCYTES 6.8 %; NEUTROPHILS 68.9 %; NEUTROPHILS ABSOLUTE 5.07 10/3/uL (2.02-8.40); PLATELET COUNT 228 10/3/uL (150-400); RBC DISTRIBUTION WIDTH 13.5 % (12.0-16.0); RED CELL COUNT 3.92 10/6/uL (4.0-5.6); WHITE BLOOD CELLS 7.4 10/3/uL (4.5-10.5)
[2016-11-02 14:48] LABS: HEMATOCRIT 35.5 % (36.0-48.0); MANUAL DIFF NO %
[2016-11-02 15:01] LABS: BUN (BLOOD UREA NITROGEN) 14 MG/DL (6-23); CALCIUM, SERUM 8.7 MG/DL (8.5-10.4); CHLORIDE, SERUM 107 MMOL/L (96-112); CO2 (CARBON DIOXIDE) 28 MMOL/L (24-34); CREATININE 0.61 MG/DL (0.55-1.02); GFR AFRICAN AMERICAN 98 ML/MIN (>=60); GFR NON AFRICAN AMERICAN 84 ML/MIN (>=60); POTASSIUM, SERUM 4.1 MMOL/L (3.5-5.3); SODIUM, SERUM 143 MMOL/L (135-148)
[2016-11-02 15:07] LABS: GLUCOSE, SERUM 139 MG/DL (60-99)
[2016-11-03 05:41] LABS: BASOPHILS 0.1 %; BASOPHILS ABSOLUTE 0.01 10/3/uL (0.0-0.16); EOSINOPHILS 0.2 %; EOSINOPHILS ABSOLUTE 0.02 10/3/uL (0.0-0.53); HEMATOCRIT 36.2 % (36.0-48.0); IMMATURE GRANULOCYTES 0.2 %; IMMATURE GRANULOCYTES ABSOLUTE 0.02 10/3/uL (0.0-0.11); LYMPHOCYTES 15.5 %; MEAN CORPUS HGB CONC 33.1 g/dL (32.0-36.0); MEAN CORPUSCULAR HEMOGLOB 31.2 pg (26.0-34.0); MONOCYTES 6.2 %; MONOCYTES ABSOLUTE 0.56 10/3/uL (0.21-1.20); NEUTROPHILS 77.8 %; NEUTROPHILS ABSOLUTE 7.01 10/3/uL (2.02-8.40); PLATELET COUNT 221 10/3/uL (150-400); RBC DISTRIBUTION WIDTH 13.6 % (12.0-16.0); RED CELL COUNT 3.85 10/6/uL (4.0-5.6)
[2016-11-03 05:47] LABS: MANUAL DIFF NO %
[2016-11-03 05:52] LABS: BUN (BLOOD UREA NITROGEN) 15 MG/DL (6-23); CALCIUM, SERUM 8.2 MG/DL (8.5-10.4); CHLORIDE, SERUM 107 MMOL/L (96-112); CO2 (CARBON DIOXIDE) 24 MMOL/L (24-34); CREATININE 0.77 MG/DL (0.55-1.02); GFR AFRICAN AMERICAN 83 ML/MIN (>=60); GFR NON AFRICAN AMERICAN 72 ML/MIN (>=60); POTASSIUM, SERUM 4.2 MMOL/L (3.5-5.3); SODIUM, SERUM 141 MMOL/L (135-148)
[2016-11-03 05:53] LABS: GLUCOSE, SERUM 207 MG/DL (60-99)
[2016-11-03 19:01] LABS: ASCORBIC ACID (UR NOT ORDER) NEG (NEG); BILIRUBIN, URINE NEGATIVE (NEG); KETONE, URINE NEGATIVE (NEG); LEUKOCYTE ESTERASE(NOT OR SMALL (NEG); WBC (NOT ORDERED) (RFLEX) 5 (0-5)
[2016-11-04 04:10] LABS: BASOPHILS 0.1 %; BASOPHILS ABSOLUTE 0.01 10/3/uL (0.0-0.16); EOSINOPHILS 1.2 %; HEMATOCRIT 35.6 % (36.0-48.0); HEMOGLOBIN 11.6 g/dL (12.0-16.0); IMMATURE GRANULOCYTES 0.1 %; IMMATURE GRANULOCYTES ABSOLUTE 0.01 10/3/uL (0.0-0.11); LYMPHOCYTES 21.8 %; LYMPHOCYTES ABSOLUTE 1.86 10/3/uL (0.67-4.30); MEAN CORPUS HGB CONC 32.6 g/dL (32.0-36.0); MEAN CORPUSCULAR HEMOGLOB 30.1 pg (26.0-34.0); MEAN CORPUSCULAR VOLUME 92.2 fL (80-100); MEAN PLATELET VOLUME 10.8 fL (9.2-13.0); MONOCYTES 8.3 %; MONOCYTES ABSOLUTE 0.71 10/3/uL (0.21-1.20); NEUTROPHILS 68.5 %; NEUTROPHILS ABSOLUTE 5.85 10/3/uL (2.02-8.40); PLATELET COUNT 186 10/3/uL (150-400); RBC DISTRIBUTION WIDTH 13.4 % (12.0-16.0); RED CELL COUNT 3.86 10/6/uL (4.0-5.6); WHITE BLOOD CELLS 8.5 10/3/uL (4.5-10.5)
[2016-11-04 04:11] LABS: MANUAL DIFF NO %
[2016-11-04 04:15] LABS: INTERNATIONAL NORMAL RATI 1.2 UNITS (-); PROTIME (NOT ORD) 15.3 SEC (12.0-14.5)
[2016-11-04 04:30] LABS: % IRON SAT 20 % (20-50); A/G RATIO 0.9 (0.7-1.9); ALBUMIN 3.1 G/DL (3.5-5.0); ALKALINE PHOSPHATASE 45 U/L (45-117); BUN (BLOOD UREA NITROGEN) 15 MG/DL (6-23); CALCIUM, SERUM 8.4 MG/DL (8.5-10.4); CHLORIDE, SERUM 105 MMOL/L (96-112); CO2 (CARBON DIOXIDE) 26 MMOL/L (24-34); CREATININE 0.78 MG/DL (0.55-1.02); GFR AFRICAN AMERICAN 82 ML/MIN (>=60); GFR NON AFRICAN AMERICAN 71 ML/MIN (>=60); GLOBULIN 3.4 G/DL (2.5-4.1); GLUCOSE, SERUM 168 MG/DL (60-99); IRON BINDING CAPACITY 278 MCG/DL (225-410); IRON, SERUM 55 MCG/DL (35-150); POTASSIUM, SERUM 4.3 MMOL/L (3.5-5.3); SGOT(AST) 9 U/L (5-40); SGPT(ALT) 15 U/L (5-65); SODIUM, SERUM 141 MMOL/L (135-148); TOTAL BILIRUBIN 0.8 MG/DL (0-1.2); TOTAL PROTEIN 6.5 G/DL (6.0-8.5)
[2016-11-04 18:01] LABS: BE (BASE EXCESS) -3.8 MEQ/L (0 +/- 2.5); CARBOXYHEMOGLOBIN 0.3 % (0-3); HCO3 (ACTUAL BICARBONATE) 22.3 MEQ/L (23-27); HEMOBLOGIN CONTENT 11.8 G/DL (12-16); INSTRUMENT SERIAL # 11843; METHEMOGLOBIN 0.6 % (0-3); MODE SIMV; O2 CONTENT 16.7 VOL% (18-24); OPERATOR ID 19104; PCO2 (CO2 TENSION) 45 MMHG (35-45); PO2 (O2 TENSION) 214 MMHG (79-93); SAMPLE Arterial; TIDAL VOLUME 500 ML; pH 7.32 (7.37-7.43)
[2016-11-04 18:37] LABS: HEMATOCRIT 32.3 % (36.0-48.0); HEMOGLOBIN 10.6 g/dL (12.0-16.0); PLATELET COUNT 134 10/3/uL (150-400)
[2016-11-04 18:48] LABS: INTERNATIONAL NORMAL RATI 1.6 UNITS (-); PARTIAL THROMBO TIME 31.8 SEC (22.5-37.2); PROTIME (NOT ORD) 18.6 SEC (12.0-14.5)
[2016-11-04 18:49] LABS: BUN (BLOOD UREA NITROGEN) 14 MG/DL (6-23); CALCIUM, SERUM 8.8 MG/DL (8.5-10.4); CHLORIDE, SERUM 111 MMOL/L (96-112); CO2 (CARBON DIOXIDE) 23 MMOL/L (24-34); CREATININE 0.94 MG/DL (0.55-1.02); GFR AFRICAN AMERICAN 65 ML/MIN (>=60); GFR NON AFRICAN AMERICAN 56 ML/MIN (>=60); SODIUM, SERUM 143 MMOL/L (135-148)
[2016-11-04 18:50] LABS: GLUCOSE, SERUM 103 MG/DL (60-99)
[2016-11-04 19:09] LABS: FIBRINOGEN 308 MG/DL (230-462)
[2016-11-05 00:09] LABS: BE (BASE EXCESS) -4.6 MEQ/L (0 +/- 2.5); CARBOXYHEMOGLOBIN 0.1 % (0-3); DEVICE NC; HCO3 (ACTUAL BICARBONATE) 20.3 MEQ/L (23-27); HEMOBLOGIN CONTENT 11.6 G/DL (12-16); INSTRUMENT SERIAL # 11843; METHEMOGLOBIN 0.4 % (0-3); O2 CONTENT 15.2 VOL% (18-24); OPERATOR ID 32193; PCO2 (CO2 TENSION) 37 MMHG (35-45); PO2 (O2 TENSION) 74 MMHG (79-93); SAMPLE Arterial; pH 7.36 (7.37-7.43)
[2016-11-05 00:43] LABS: HEMATOCRIT 32.2 % (36.0-48.0); HEMOGLOBIN 10.6 g/dL (12.0-16.0)
[2016-11-05 00:49] LABS: POTASSIUM, SERUM 4.7 MMOL/L (3.5-5.3)
[2016-11-05 04:16] LABS: BASOPHILS 0 %; EOSINOPHILS 0 %; HEMATOCRIT 30.8 % (36.0-48.0); HEMOGLOBIN 10.1 g/dL (12.0-16.0); IMMATURE GRANULOCYTES 0.1 %; IMMATURE GRANULOCYTES ABSOLUTE 0.02 10/3/uL (0.0-0.11); INTERNATIONAL NORMAL RATI 1.3 UNITS (-); LYMPHOCYTES 4.6 %; LYMPHOCYTES ABSOLUTE 0.63 10/3/uL (0.67-4.30); MANUAL DIFF NO %; MEAN CORPUS HGB CONC 32.8 g/dL (32.0-36.0); MEAN CORPUSCULAR HEMOGLOB 29.7 pg (26.0-34.0); MEAN CORPUSCULAR VOLUME 90.6 fL (80-100); MEAN PLATELET VOLUME 11.1 fL (9.2-13.0); MONOCYTES 4.1 %; MONOCYTES ABSOLUTE 0.57 10/3/uL (0.21-1.20); NEUTROPHILS 91.2 %; NEUTROPHILS ABSOLUTE 12.61 10/3/uL (2.02-8.40); PLATELET COUNT 145 10/3/uL (150-400); PROTIME (NOT ORD) 16.3 SEC (12.0-14.5); RBC DISTRIBUTION WIDTH 13.2 % (12.0-16.0); WHITE BLOOD CELLS 13.8 10/3/uL (4.5-10.5)
[2016-11-05 04:17] LABS: BUN (BLOOD UREA NITROGEN) 17 MG/DL (6-23); CALCIUM, SERUM 8.2 MG/DL (8.5-10.4); CHLORIDE, SERUM 113 MMOL/L (96-112); CO2 (CARBON DIOXIDE) 23 MMOL/L (24-34); CREATININE 0.65 MG/DL (0.55-1.02); GFR AFRICAN AMERICAN 96 ML/MIN (>=60); GFR NON AFRICAN AMERICAN 83 ML/MIN (>=60); GLUCOSE, SERUM 109 MG/DL (60-99); POTASSIUM, SERUM 4.6 MMOL/L (3.5-5.3); SODIUM, SERUM 144 MMOL/L (135-148)
[2016-11-05 16:18] LABS: HEMATOCRIT 29.1 % (36.0-48.0)
[2016-11-05 16:28] LABS: POTASSIUM, SERUM 4.2 MMOL/L (3.5-5.3)
[2016-11-06 02:49] LABS: BASOPHILS 0 %; EOSINOPHILS 0 %; IMMATURE GRANULOCYTES 0.1 %; IMMATURE GRANULOCYTES ABSOLUTE 0.01 10/3/uL (0.0-0.11)
[2016-11-06 02:50] LABS: MANUAL DIFF NO %
[2016-11-06 04:10] LABS: WHITE BLOOD CELLS 16.3 10/3/uL (4.5-10.5)
[2016-11-06 04:11] LABS: RED CELL COUNT 2.95 10/6/uL (4.0-5.6)
[2016-11-06 04:12] LABS: HEMATOCRIT 26.9 % (36.0-48.0); MEAN CORPUS HGB CONC 33.5 g/dL (32.0-36.0); MEAN CORPUSCULAR HEMOGLOB 30.5 pg (26.0-34.0); MEAN CORPUSCULAR VOLUME 91.2 fL (80-100); PLATELET COUNT 156 10/3/uL (150-400); RBC DISTRIBUTION WIDTH 13.6 % (12.0-16.0)
[2016-11-06 04:13] LABS: LYMPHOCYTES 8.5 %; MONOCYTES 8.1 %; NEUTROPHILS ABSOLUTE 13.51 10/3/uL (2.02-8.40)
[2016-11-06 04:14] LABS: LYMPHOCYTES ABSOLUTE 1.39 10/3/uL (0.67-4.30); MONOCYTES ABSOLUTE 1.31 10/3/uL (0.21-1.20)
[2016-11-06 05:59] LABS: BUN (BLOOD UREA NITROGEN) 26 MG/DL (6-23); CALCIUM, SERUM 8.4 MG/DL (8.5-10.4); CHLORIDE, SERUM 108 MMOL/L (96-112); CO2 (CARBON DIOXIDE) 22 MMOL/L (24-34); CREATININE 0.61 MG/DL (0.55-1.02); GFR AFRICAN AMERICAN 98 ML/MIN (>=60); GFR NON AFRICAN AMERICAN 84 ML/MIN (>=60); GLUCOSE, SERUM 104 MG/DL (60-99); POTASSIUM, SERUM 4.8 MMOL/L (3.5-5.3); SODIUM, SERUM 140 MMOL/L (135-148)
[2016-11-07 04:45] LABS: BASOPHILS 0 %; EOSINOPHILS 0.5 %; EOSINOPHILS ABSOLUTE 0.06 10/3/uL (0.0-0.53); HEMATOCRIT 27.4 % (36.0-48.0); HEMOGLOBIN 9.4 g/dL (12.0-16.0); IMMATURE GRANULOCYTES 0.2 %; IMMATURE GRANULOCYTES ABSOLUTE 0.03 10/3/uL (0.0-0.11); LYMPHOCYTES 11.6 %; LYMPHOCYTES ABSOLUTE 1.44 10/3/uL (0.67-4.30); MEAN CORPUS HGB CONC 34.3 g/dL (32.0-36.0); MEAN CORPUSCULAR HEMOGLOB 31.6 pg (26.0-34.0); MEAN CORPUSCULAR VOLUME 92.3 fL (80-100); MONOCYTES 9.6 %; NEUTROPHILS 78.1 %; NEUTROPHILS ABSOLUTE 9.72 10/3/uL (2.02-8.40); PLATELET COUNT 152 10/3/uL (150-400); RBC DISTRIBUTION WIDTH 13.6 % (12.0-16.0); RED CELL COUNT 2.97 10/6/uL (4.0-5.6); WHITE BLOOD CELLS 12.5 10/3/uL (4.5-10.5)
[2016-11-07 04:49] LABS: MANUAL DIFF NO %
[2016-11-07 04:58] LABS: BUN (BLOOD UREA NITROGEN) 23 MG/DL (6-23); CALCIUM, SERUM 8.3 MG/DL (8.5-10.4); CHLORIDE, SERUM 101 MMOL/L (96-112); CO2 (CARBON DIOXIDE) 24 MMOL/L (24-34); CREATININE 0.61 MG/DL (0.55-1.02); GFR AFRICAN AMERICAN 98 ML/MIN (>=60); GFR NON AFRICAN AMERICAN 84 ML/MIN (>=60); POTASSIUM, SERUM 4.8 MMOL/L (3.5-5.3)
[2016-11-07 05:01] LABS: GLUCOSE, SERUM 184 MG/DL (60-99); SODIUM, SERUM 133 MMOL/L (135-148)
[2016-11-07 06:37] LABS: PROCALCITONIN <0.05 ng/mL (<0.5)
[2016-11-08 04:00] LABS: BASOPHILS 0.1 %; BASOPHILS ABSOLUTE 0.01 10/3/uL (0.0-0.16); EOSINOPHILS 1.3 %; EOSINOPHILS ABSOLUTE 0.14 10/3/uL (0.0-0.53); HEMATOCRIT 28.5 % (36.0-48.0); HEMOGLOBIN 9.6 g/dL (12.0-16.0); IMMATURE GRANULOCYTES 0.2 %; IMMATURE GRANULOCYTES ABSOLUTE 0.02 10/3/uL (0.0-0.11); LYMPHOCYTES 14.4 %; LYMPHOCYTES ABSOLUTE 1.51 10/3/uL (0.67-4.30); MEAN CORPUS HGB CONC 33.7 g/dL (32.0-36.0); MEAN CORPUSCULAR VOLUME 91.9 fL (80-100); MEAN PLATELET VOLUME 10.7 fL (9.2-13.0); MONOCYTES 8.3 %; MONOCYTES ABSOLUTE 0.87 10/3/uL (0.21-1.20); NEUTROPHILS 75.7 %; NEUTROPHILS ABSOLUTE 7.92 10/3/uL (2.02-8.40); PLATELET COUNT 180 10/3/uL (150-400); RBC DISTRIBUTION WIDTH 13.6 % (12.0-16.0); WHITE BLOOD CELLS 10.5 10/3/uL (4.5-10.5)
[2016-11-08 04:05] LABS: MANUAL DIFF NO %
[2016-11-08 04:18] LABS: BUN (BLOOD UREA NITROGEN) 26 MG/DL (6-23); CALCIUM, SERUM 7.8 MG/DL (8.5-10.4); CHLORIDE, SERUM 101 MMOL/L (96-112); CO2 (CARBON DIOXIDE) 25 MMOL/L (24-34); CREATININE 0.57 MG/DL (0.55-1.02); GFR AFRICAN AMERICAN 100 ML/MIN (>=60); GFR NON AFRICAN AMERICAN 86 ML/MIN (>=60); GLUCOSE, SERUM 165 MG/DL (60-99); SODIUM, SERUM 134 MMOL/L (135-148)
[2016-11-09 03:47] LABS: BASOPHILS 0.1 %; BASOPHILS ABSOLUTE 0.01 10/3/uL (0.0-0.16); EOSINOPHILS 1.7 %; EOSINOPHILS ABSOLUTE 0.15 10/3/uL (0.0-0.53); HEMATOCRIT 26.8 % (36.0-48.0); HEMOGLOBIN 9.1 g/dL (12.0-16.0); IMMATURE GRANULOCYTES 0.2 %; IMMATURE GRANULOCYTES ABSOLUTE 0.02 10/3/uL (0.0-0.11); LYMPHOCYTES 15.2 %; LYMPHOCYTES ABSOLUTE 1.36 10/3/uL (0.67-4.30); MANUAL DIFF NO %; MEAN CORPUSCULAR HEMOGLOB 31.3 pg (26.0-34.0); MEAN CORPUSCULAR VOLUME 92.1 fL (80-100); MEAN PLATELET VOLUME 10.3 fL (9.2-13.0); MONOCYTES 10.4 %; MONOCYTES ABSOLUTE 0.93 10/3/uL (0.21-1.20); NEUTROPHILS 72.4 %; NEUTROPHILS ABSOLUTE 6.48 10/3/uL (2.02-8.40); PLATELET COUNT 200 10/3/uL (150-400); RBC DISTRIBUTION WIDTH 13.5 % (12.0-16.0); RED CELL COUNT 2.91 10/6/uL (4.0-5.6)
[2016-11-09 04:07] LABS: CALCIUM, SERUM 7.9 MG/DL (8.5-10.4); CHLORIDE, SERUM 104 MMOL/L (96-112); CO2 (CARBON DIOXIDE) 28 MMOL/L (24-34); CREATININE 0.44 MG/DL (0.55-1.02); GFR AFRICAN AMERICAN 109 ML/MIN (>=60); GFR NON AFRICAN AMERICAN 94 ML/MIN (>=60); POTASSIUM, SERUM 4.2 MMOL/L (3.5-5.3); SODIUM, SERUM 140 MMOL/L (135-148)
[2016-11-09 04:08] LABS: BUN (BLOOD UREA NITROGEN) 18 MG/DL (6-23); GLUCOSE, SERUM 120 MG/DL (60-99)
[2016-11-10 04:05] LABS: BASOPHILS 0.1 %; BASOPHILS ABSOLUTE 0.01 10/3/uL (0.0-0.16); EOSINOPHILS 2.1 %; EOSINOPHILS ABSOLUTE 0.19 10/3/uL (0.0-0.53); HEMATOCRIT 28.5 % (36.0-48.0); HEMOGLOBIN 9.4 g/dL (12.0-16.0); IMMATURE GRANULOCYTES 0.2 %; IMMATURE GRANULOCYTES ABSOLUTE 0.02 10/3/uL (0.0-0.11); LYMPHOCYTES 14.8 %; LYMPHOCYTES ABSOLUTE 1.34 10/3/uL (0.67-4.30); MEAN CORPUSCULAR VOLUME 91.1 fL (80-100); MEAN PLATELET VOLUME 9.7 fL (9.2-13.0); NEUTROPHILS 71.8 %; NEUTROPHILS ABSOLUTE 6.49 10/3/uL (2.02-8.40); PLATELET COUNT 245 10/3/uL (150-400); RBC DISTRIBUTION WIDTH 13.6 % (12.0-16.0); RED CELL COUNT 3.13 10/6/uL (4.0-5.6); WHITE BLOOD CELLS 9.1 10/3/uL (4.5-10.5)
[2016-11-10 04:10] LABS: MANUAL DIFF NO %
[2016-11-10 04:21] LABS: BUN (BLOOD UREA NITROGEN) 13 MG/DL (6-23); CALCIUM, SERUM 8.3 MG/DL (8.5-10.4); CHLORIDE, SERUM 102 MMOL/L (96-112); CO2 (CARBON DIOXIDE) 28 MMOL/L (24-34); CREATININE 0.56 MG/DL (0.55-1.02); GFR AFRICAN AMERICAN 101 ML/MIN (>=60); GFR NON AFRICAN AMERICAN 87 ML/MIN (>=60); GLUCOSE, SERUM 126 MG/DL (60-99); POTASSIUM, SERUM 4.1 MMOL/L (3.5-5.3); SODIUM, SERUM 138 MMOL/L (135-148)
[2016-11-11 05:02] LABS: BASOPHILS 0.2 %; BASOPHILS ABSOLUTE 0.02 10/3/uL (0.0-0.16); EOSINOPHILS ABSOLUTE 0.29 10/3/uL (0.0-0.53); HEMATOCRIT 28.6 % (36.0-48.0); HEMOGLOBIN 9.5 g/dL (12.0-16.0); IMMATURE GRANULOCYTES 0.3 %; IMMATURE GRANULOCYTES ABSOLUTE 0.03 10/3/uL (0.0-0.11); LYMPHOCYTES 14.5 %; LYMPHOCYTES ABSOLUTE 1.43 10/3/uL (0.67-4.30); MEAN CORPUS HGB CONC 33.2 g/dL (32.0-36.0); MEAN CORPUSCULAR HEMOGLOB 30.9 pg (26.0-34.0); MEAN CORPUSCULAR VOLUME 93.2 fL (80-100); MEAN PLATELET VOLUME 9.5 fL (9.2-13.0); MONOCYTES 11.1 %; MONOCYTES ABSOLUTE 1.09 10/3/uL (0.21-1.20); NEUTROPHILS 70.9 %; NEUTROPHILS ABSOLUTE 6.97 10/3/uL (2.02-8.40); PLATELET COUNT 257 10/3/uL (150-400); RBC DISTRIBUTION WIDTH 13.4 % (12.0-16.0); RED CELL COUNT 3.07 10/6/uL (4.0-5.6); WHITE BLOOD CELLS 9.8 10/3/uL (4.5-10.5)
[2016-11-11 05:03] LABS: MANUAL DIFF NO %
[2016-11-11 05:08] LABS: CALCIUM, SERUM 8.4 MG/DL (8.5-10.4); CHLORIDE, SERUM 103 MMOL/L (96-112); CO2 (CARBON DIOXIDE) 27 MMOL/L (24-34); GFR AFRICAN AMERICAN 98 ML/MIN (>=60); GFR NON AFRICAN AMERICAN 85 ML/MIN (>=60); GLUCOSE, SERUM 142 MG/DL (60-99); POTASSIUM, SERUM 4.1 MMOL/L (3.5-5.3); SODIUM, SERUM 138 MMOL/L (135-148)
[2016-11-11 05:14] LABS: BUN (BLOOD UREA NITROGEN) 17 MG/DL (6-23)
== END 2016-11-13 17:27 | DRG 234 ==
LOC: ER 17:55 → CDU1 18:03 → CDU2 18:51 → SSU1 11-02 17:11 → SDC/OF 11-04 09:32 → CVICU 11-04 16:24 → 5NO 11-10 16:06
PROVIDERS: Clinical Nurse Specialist; Emergency Medicine; Internal Medicine; Internal Medicine Cardiovascular Disease; Internal Medicine Critical Care Medicine; Nurse Practitioner Family; Thoracic Surgery (Cardiothoracic Vascular Surgery)
PROC: 4A023N7 Measurement of Cardiac Sampling and Pressure, Left Heart, Percutaneous Approach (ICD-10-PCS; principal; 2016-11-02)
PROC: 021109W Bypass Coronary Artery, Two Arteries from Aorta with Autologous Venous Tissue, Open Approach (ICD-10-PCS; 2016-11-02)
PROC: B2111ZZ Fluoroscopy of Multiple Coronary Arteries using Low Osmolar Contrast (ICD-10-PCS; 2016-11-02)
PROC: B2151ZZ Fluoroscopy of Left Heart using Low Osmolar Contrast (ICD-10-PCS; 2016-11-02)
PROC: 02100Z9 Bypass Coronary Artery, One Artery from Left Internal Mammary, Open Approach (ICD-10-PCS; 2016-11-02)
PROC: 06BQ4ZZ Excision of Left Saphenous Vein, Percutaneous Endoscopic Approach (ICD-10-PCS; 2016-11-04)
PROC: 06BP4ZZ Excision of Right Saphenous Vein, Percutaneous Endoscopic Approach (ICD-10-PCS; 2016-11-04)
PROC: 5A1221Z Performance of Cardiac Output, Continuous (ICD-10-PCS; 2016-11-04)
PROC: B246ZZ4 Ultrasonography of Right and Left Heart, Transesophageal (ICD-10-PCS; 2016-11-04)
PROC: 0JH606Z Insertion of Pacemaker, Dual Chamber into Chest Subcutaneous Tissue and Fascia, Open Approach (ICD-10-PCS; 2016-11-09)
PROC: 02H63JZ Insertion of Pacemaker Lead into Right Atrium, Percutaneous Approach (ICD-10-PCS; 2016-11-09)
PROC: 02HK3JZ Insertion of Pacemaker Lead into Right Ventricle, Percutaneous Approach (ICD-10-PCS; 2016-11-09)
DX: I25.110 Atherosclerotic heart disease of native coronary artery with unstable angina pectoris (principal); I44.2 Atrioventricular block, complete; E11.65 Type 2 diabetes mellitus with hyperglycemia; D62 Acute posthemorrhagic anemia; I10 Essential (primary) hypertension; E78.5 Hyperlipidemia, unspecified; K21.9 Gastro-esophageal reflux disease without esophagitis; M19.90 Unspecified osteoarthritis, unspecified site; E03.9 Hypothyroidism, unspecified; Z82.49 Family history of ischemic heart disease and other diseases of the circulatory system; Z90.710 Acquired absence of both cervix and uterus; Z90.49 Acquired absence of other specified parts of digestive tract; Z98.890 Other specified postprocedural states; Z96.641 Presence of right artificial hip joint; Z96.652 Presence of left artificial knee joint; Z88.0 Allergy status to penicillin; Z79.84 Long term (current) use of oral hypoglycemic drugs; E66.9 Obesity, unspecified; Z68.36 Body mass index [BMI] 36.0-36.9, adult
CPT/HCPCS: 33208; 36415; 71010; 71020; 80048; 80053; 81001; 82330; 82803; 82805; 82947; 82962; 83036; 83540; 83550; 83735; 84132; 84145; 84295; 84439; 84443; 84484; 85014; 85018; 85025; 85049; 85347; 85384; 85610; 85730; 86850; 86900; 86901; 86920; 87086; 87641; 93005; 93312; 93320; 93325; 93458; 93880; 94002; 94640; 94660; 94770; 97110-GP; 97162-GP; 99152; 99153; 99285; A9270-GY; C1713; C1751; C1760; C1769; C1785; C1887; C1892; C1894; C1898; G0365; J0360; J0690; J1644; J2150; J2250; J2370; J2405; J2440; J2720; J2930; J3010; J3370; J3475; J3480; P9045; P9047; Q9967

== ENCOUNTER 2017-01-22 09:51 | Emergency (ER) | payer MEDICARE ==
[2017-01-22 08:27] LABS: BASOPHILS 0.3 %; BASOPHILS ABSOLUTE 0.02 10/3/uL (0.0-0.16); EOSINOPHILS 1.8 %; EOSINOPHILS ABSOLUTE 0.14 10/3/uL (0.0-0.53); ER CBC TAT 0 Hrs 07 Mins; HEMATOCRIT 29.6 % (36.0-48.0); HEMOGLOBIN 9.6 g/dL (12.0-16.0); IMMATURE GRANULOCYTES 0.1 %; IMMATURE GRANULOCYTES ABSOLUTE 0.01 10/3/uL (0.0-0.11); LYMPHOCYTES 21.2 %; LYMPHOCYTES ABSOLUTE 1.65 10/3/uL (0.67-4.30); MANUAL DIFF NO %; MEAN CORPUS HGB CONC 32.4 g/dL (32.0-36.0); MEAN CORPUSCULAR VOLUME 89.4 fL (80-100); MEAN PLATELET VOLUME 9.3 fL (9.2-13.0); MONOCYTES 7.4 %; MONOCYTES ABSOLUTE 0.58 10/3/uL (0.21-1.20); NEUTROPHILS 69.2 %; NEUTROPHILS ABSOLUTE 5.39 10/3/uL (2.02-8.40); PLATELET COUNT 244 10/3/uL (150-400); RBC DISTRIBUTION WIDTH 15.2 % (12.0-16.0); RED CELL COUNT 3.31 10/6/uL (4.0-5.6); WHITE BLOOD CELLS 7.8 10/3/uL (4.5-10.5)
[2017-01-22 08:34] LABS: PARTIAL THROMBO TIME 37.5 SEC (22.5-37.2)
[2017-01-22 08:42] LABS: BUN (BLOOD UREA NITROGEN) 14 MG/DL (6-23); CALCIUM, SERUM 8.3 MG/DL (8.5-10.4); CHEST PAIN PROFILE TAT 0 Hrs 22 Mins; CHLORIDE, SERUM 104 MMOL/L (96-112); CO2 (CARBON DIOXIDE) 29 MMOL/L (24-34); CREATININE 0.71 MG/DL (0.55-1.02); GFR AFRICAN AMERICAN 92 ML/MIN (>=60); GFR NON AFRICAN AMERICAN 79 ML/MIN (>=60); GLUCOSE, SERUM 152 MG/DL (60-99); SODIUM, SERUM 138 MMOL/L (135-148); TROPONIN I <0.02 NG/ML (<0.05)
[2017-01-22 08:43] LABS: PROTIME (NOT ORD) 22.7 SEC (12.0-14.5)
[~2017-01-22 09:51] MED LIST changes: +ADVIL PO; +ATV1 PO; +GLUCOPHAGE1000 MG PO; +JANUVIA100 MG PO; +LEVOTHYROXIN75 MCG PO; +MOBIC15 MG PO; +NEUR100 PO; +OSTEO BI-FLEX1 EACH PO; +PRESERVISION A1 EAC1 PO; +PRILOSEC40 MG PO; +ZESTRIL20 MG PO; +ZOCOR40 PO
== END 2017-01-22 09:53 | disposition home or self-care (01) ==
LOC: ER 09:51
PROVIDERS: Emergency Medicine
DX: R07.89 Other chest pain (principal); I10 Essential (primary) hypertension; K21.9 Gastro-esophageal reflux disease without esophagitis; Z88.0 Allergy status to penicillin; Z91.018 Allergy to other foods; Z79.84 Long term (current) use of oral hypoglycemic drugs; Z79.899 Other long term (current) drug therapy
CPT/HCPCS: 71020; 80048; 83735; 84484; 85025; 85610; 85730; 93005; 99285; A9270-GY